=== PATIENT | male | born 1980 | race Caucasian/White ===

== ENCOUNTER 2020-01-29 10:23 | Emergency (ER) | payer OTHER ==
[~2020-01-29] VITALS: Ht 185.4 cm; Wt 63.5 kg
[~2020-01-29 10:23] MED LIST: NORCO 5-325 TA1 EACH PO; SEPTRA DS TABL1 EACH PO
[2020-01-29] MEDS ORDERED: PHENYTOIN SODI100 MG PO (10:48)
[2020-01-29] MEDS ORDERED: CLEOCIN HCL300 MG PO (12:08)
== END 2020-01-29 12:21 | disposition home or self-care (01) ==
LOC: ED 10:23
DX: H60.01 Abscess of right external ear (principal); H60.11 Cellulitis of right external ear; F17.200 Nicotine dependence, unspecified, uncomplicated; Z88.5 Allergy status to narcotic agent; Z79.899 Other long term (current) drug therapy
CPT/HCPCS: 10060; 87070; 87205; 99283-25

== ENCOUNTER 2020-05-29 00:32 | Emergency (ER) | payer OTHER ==
[~2020-05-29] VITALS: Ht 185.4 cm; Wt 63.5 kg
[~2020-05-29 00:32] MED LIST changes: +CLEOCIN HCL300 MG PO; +PHENYTOIN SODI100 MG PO
== END 2020-05-29 02:00 | disposition home or self-care (01) ==
LOC: ED 00:32
DX: R30.0 Dysuria (principal); Z20.2 Contact with and (suspected) exposure to infections with a predominantly sexual mode of transmission; F17.200 Nicotine dependence, unspecified, uncomplicated; Z88.0 Allergy status to penicillin; Z88.5 Allergy status to narcotic agent; Z88.6 Allergy status to analgesic agent
CPT/HCPCS: 81001; 87088; 87491; 87591; 96372; 99283; J1580